=== PATIENT | female | born 1995 | race Caucasian/White ===

== ENCOUNTER → 2018-06-09 | Outpatient (CLI) | payer OTHER | LOC: EDBD 21:22 → COL.LAB 21:22 → COL.RAD 21:22 → EDSTATUS 22:13 | DX: O99.89 Other specified diseases and conditions complicating pregnancy, childbirth and the puerperium (principal); Z3A.27 27 weeks gestation of pregnancy; D72.829 Elevated white blood cell count, unspecified; N13.30 Unspecified hydronephrosis ==